=== PATIENT | male | born 1955 | race Caucasian/White ===

== ENCOUNTER 2022-04-16 12:31 | Outpatient (CLI) | payer OTHER, SELFPAY ==
--- NOTE | 2022-04-16 13:58 | PFTS_ITS ---
Date of Study:04/16/22 Date of Dictation: 04/17/2022 MECHANICS: Prebronchodilator forced vital capacity (FVC) is normal. Prebronchodilator forced expiratory volume in one second (FEV1) is normal. FEV1/FVC is normal. There is no postbronchodilator study. FLOW VOLUME LOOP: Normal LUNG VOLUMES: Not measured DIFFUSING CAPACITY FOR CARBON MONOXIDE: Not measured . INTERPRETATION: The prebronchodilator spirometry is normal. Lung volumes and gas transfer not measured.. MTDD
== END 2022-04-16 12:32 | disposition home or self-care (01) ==
LOC: RT 12:33
PROVIDERS: Visit Provider Chiropractor
DX: J18.9 Pneumonia, unspecified organism (principal)
CPT/HCPCS: 94010